=== PATIENT | female | born 1970 | race Caucasian/White ===

== ENCOUNTER 2021-04-03 14:25 | Outpatient (CLI) | payer OTHER, SELFPAY | END 2021-04-03 14:26 | disposition home or self-care (01) | LOC: ANHBWCAUD 14:40 | PROVIDERS: PCP Internal Medicine Infectious Disease; Visit Provider Internal Medicine Infectious Disease | DX: Z97.4 Presence of external hearing-aid (principal) | CPT/HCPCS: 92557; 92567 ==

== ENCOUNTER 2021-04-24 11:00 | Outpatient (CLI) | payer OTHER, SELFPAY | END 2021-04-24 11:01 | disposition home or self-care (01) | LOC: ANHBWCAUD 11:00 | PROVIDERS: PCP Internal Medicine Infectious Disease; Visit Provider Internal Medicine Infectious Disease | DX: Z97.4 Presence of external hearing-aid (principal) | CPT/HCPCS: 92557; 92567 ==